=== PATIENT | male | born 1950 | race Caucasian/White ===

== ENCOUNTER 2018-12-02 04:07 | Emergency (ER) | payer BC, OTHER ==
[~2018-12-02] VITALS: Ht 177.8 cm; Wt 97.7 kg
[2018-12-02 05:48] LABS: BASO % 0.5 % (0.0-1.0); EOS # 0.1 10^3/uL (0.0-0.50); HEMATOCRIT 45.6 % (42.0-52.0); MEAN CORPUSCULAR HEMOGLOBIN 32.3 pg (27.0-33.0); MEAN CORPUSCULAR HGB CONC 35.1 g/dl (32.0-36.5); MEAN CORPUSCULAR VOLUME 91.9 fl (80.0-96.0); MONO # 0.5 10^3/uL (0.0-0.8); MONO % 8.5 % (0.0-5.0); NEUTROPHILS # 3.4 10^3/uL (1.8-7.7); NEUTROPHILS % 55.8 % (36.0-66.0); PLATELET COUNT, AUTOMATED 179 10^3/uL (150-450); RED BLOOD COUNT 4.96 10^6/uL (4.30-6.10); WHITE BLOOD COUNT 6.1 10^3/uL (4.0-10.0)
[2018-12-02 05:55] LABS: BLOOD UREA NITROGEN 16 MG/DL (7-18); CALCIUM LEVEL 8.9 MG/DL (8.8-10.2); CARBON DIOXIDE LEVEL 22 MEQ/L (21-32); CHLORIDE LEVEL 109 MEQ/L (98-107); CREATININE FOR GFR 0.97 MG/DL (0.70-1.30); GLOMERULAR FILTRATION RATE > 60.0 (>49); GLUCOSE, FASTING 101 MG/DL (70-100); SODIUM LEVEL 141 MEQ/L (136-145)
[2018-12-02 07:06] LABS: CK-MB VALUE MASS < 1.0 NG/ML (<3.6); CPK CREATINE PHOSPHOKINASE 57 U/L (39-308); MB/CK RELATIVE INDEX 1.75 (< OR =4); NT-PRO BNP 36 PG/ML (<125); TROPONIN I < 0.02 NG/ML (< 0.10)
[2018-12-02 08:45] VITALS: BP 114/68
--- NOTE | 2018-12-02 13:50 | REP ---
Chest x-ray: Two views. History: Shortness of breath . Comparison study: No comparison study . Findings: The lungs are well inflated and free of infiltrate. The pleural angles are sharp. The heart size is normal. Pulmonary vasculature is not increased. No significant bony abnormality is seen. EKG monitoring electrodes are seen. Impression: Negative chest x-ray. Electronically Signed by Osmar Watt MD 12/02/2018 01:41 P
--- NOTE | 2018-12-03 06:58 | ECGEPIP ---
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
== END 2018-12-02 08:55 | disposition home or self-care (01) ==
LOC: M ED 04:07
DX: R06.02 Shortness of breath (principal); R00.1 Bradycardia, unspecified; I48.91 Unspecified atrial fibrillation; K21.9 Gastro-esophageal reflux disease without esophagitis; F32.9 Major depressive disorder, single episode, unspecified

== ENCOUNTER → 2020-02-07 | Outpatient (REF) | payer OTHER | LOC: M LAB REF 08:42 | PROVIDERS: ATTEND Dermatology | DX: C44.509 Unspecified malignant neoplasm of skin of other part of trunk (principal) ==

== ENCOUNTER → 2020-03-19 | Outpatient (REF) | payer OTHER ==
[~2020-03-19] MED LIST: PROT20TA11 PO
== END ==
LOC: M LAB REF 10:41
PROVIDERS: ATTEND Dermatology
DX: C44.519 Basal cell carcinoma of skin of other part of trunk (principal)

== ENCOUNTER → 2020-05-14 | Outpatient (REF) | payer OTHER | LOC: M LAB REF 11:25 | PROVIDERS: ATTEND Dermatology | DX: L72.11 Pilar cyst (principal) ==

== ENCOUNTER → 2020-07-13 | Outpatient (CLI) | payer OTHER | LOC: M LABSMTC 08:30 | PROVIDERS: ATTEND Anesthesiology | DX: Z01.818 Encounter for other preprocedural examination (principal); Z20.828 Contact with and (suspected) exposure to other viral communicable diseases | CPT/HCPCS: C9803; U0003 ==

== ENCOUNTER 2020-07-18 07:36 | Day surgery (SDC) | payer BC, OTHER ==
[~2020-07-18] VITALS: Ht 180.3 cm; Wt 101.2 kg
[~2020-07-18 07:36] MED LIST changes: +LIDOCAINE 2% 100MG/5ML SDV (FOR ANES.) As Ordered ONE; +NS 1,000 ML IV ONE; +propofoL 200 MG/20 ML VIAL As Ordered ONE
[2020-07-18] MEDS ORDERED: propofoL 200 MG/20 ML VIAL As Ordered ONE (09:04)
--- NOTE | 2020-07-18 09:35 | ROOR ---
Patient Name: Sunday Pinon Procedure Date: 07/18/2020 8:47 AM Date of : 1950 Age: 69 Room: [facility] Gender: Male Note Status: Finalized Procedure: Colonoscopy Indications: Abnormal CT of the GI tract Providers: Derek Aponte MD Referring MD: FOREST ARRIOLA DO Requesting Provider: Medicines: Monitored Anesthesia Care Complications: No immediate complications. Procedure: Pre-Anesthesia Assessment: - Prior to the procedure, a History and Physical was performed, and patient medications and allergies were reviewed. The patient is competent. The risks and benefits of the procedure and the sedation options and risks were discussed with the patient. All questions were answered and informed consent was obtained. Patient identification and proposed procedure were verified by the physician, the nurse and the anesthesiologist in the procedure room. Mental Status Examination: alert and oriented. Airway Examination: normal oropharyngeal airway and neck mobility. Respiratory Examination: clear to auscultation. CV Examination: normal. Prophylactic Antibiotics: The patient does not require prophylactic antibiotics. Prior Anticoagulants: The patient has taken no previous anticoagulant or antiplatelet agents. ASA Grade Assessment: II - A patient with mild systemic disease. After reviewing the risks and benefits, the patient was deemed in satisfactory condition to undergo the procedure. The anesthesia plan was to use monitored anesthesia care (MAC). Immediately prior to administration of medications, the patient was re-assessed for adequacy to receive sedatives. The heart rate, respiratory rate, oxygen saturations, blood pressure, adequacy of pulmonary ventilation, and response to care were monitored throughout the procedure. The physical status of the patient was re-assessed after the procedure. The Colonoscope was introduced through the anus and advanced to the terminal ileum, with identification of the appendiceal orifice and IC valve. The colonoscopy was performed without difficulty. The patient tolerated the procedure well. The quality of the bowel preparation was good. The terminal ileum, ileocecal valve, appendiceal orifice, and rectum were photographed. Scope insertion time was 3 minutes. Scope withdrawal time was 9 minutes. The total duration of the procedure was 12 minutes. Findings: The perianal and digital rectal examinations were normal. The terminal ileum appeared normal. Five sessile polyps were found in the recto-sigmoid colon, descending colon, ascending colon and cecum. The polyps were 3 to 8 mm in size. These polyps were removed with a jumbo cold forceps. Resection and retrieval were complete. Verification of patient identification for the specimen was done by the physician and nurse using the patient's name, date and medical record number. Estimated blood loss was minimal. Multiple small and large-mouthed diverticula were found from sigmoid to descending colon. Non-bleeding external and internal hemorrhoids were found during retroflexion. The hemorrhoids were medium-sized. Normal mucosa was found in the entire colon. Biopsies for histology were taken with a cold forceps from the right colon, left colon and rectosigmoid colon for evaluation of microscopic colitis. Impression: - The examined portion of the ileum was normal. - Five 3 to 8 mm polyps at the recto-sigmoid colon, in the descending colon, in the ascending colon and in the cecum, removed with a jumbo cold forceps. Resected and retrieved. - Diverticulosis from sigmoid to descending colon. - Non-bleeding external and internal hemorrhoids. - Normal mucosa in the entire examined colon. Biopsied. Recommendation: - Patient has a contact number available for emergencies. The signs and symptoms of potential delayed complications were discussed with the patient. Return to normal activities tomorrow. Written discharge instructions were provided to the patient. - High fiber diet. - Continue present medications. - Await pathology results. - Use fiber, for example Citrucel, Fibercon, Konsyl or Metamucil. - Repeat colonoscopy in 3 - 5 years for surveillance of multiple polyps. - Telephone GI clinic for pathology results in 1 week. - Return to primary care physician. Derek Aponte MD Derek Aponte MD 07/18/2020 9:35:22 AM Electronically signed by Derek Aponte MD Number of Addenda: 0 Note Initiated On: 07/18/2020 8:47 AM Estimated Blood Loss: Estimated blood loss was minimal.
[2020-07-18 09:53] VITALS: BP 161/83
== END 2020-07-18 09:55 | disposition home or self-care (01) ==
LOC: M OPP 07:36
PROVIDERS: ATTEND Internal Medicine Gastroenterology
DX: K63.5 Polyp of colon (principal); K64.8 Other hemorrhoids; K57.30 Diverticulosis of large intestine without perforation or abscess without bleeding; R93.3 Abnormal findings on diagnostic imaging of other parts of digestive tract; M79.3 Panniculitis, unspecified; Z79.899 Other long term (current) drug therapy

== ENCOUNTER → 2020-12-28 | Outpatient (CLI) | payer BC, OTHER ==
[~2020-12-28] MED LIST changes: -LIDOCAINE 2% 100MG/5ML SDV (FOR ANES.) As Ordered ONE; -NS 1,000 ML IV ONE; +PANT20TA6; -propofoL 200 MG/20 ML VIAL As Ordered ONE
== END ==
LOC: M LABSMTC 08:27
PROVIDERS: ATTEND Anesthesiology
DX: Z20.828 Contact with and (suspected) exposure to other viral communicable diseases (principal); Z11.59 Encounter for screening for other viral diseases

== ENCOUNTER 2021-01-02 11:23 | Day surgery (SDC) | payer BC, OTHER ==
[~2021-01-02] VITALS: Ht 177.8 cm; Wt 98.9 kg
[2021-01-02] MEDS ORDERED: propofoL 200 MG/20 ML VIAL As Ordered ONE (12:53)
[2021-01-02] MEDS ORDERED: LIDOCAINE 2% 100MG/5ML SDV (FOR ANES.) As Ordered ONE (12:53)
[2021-01-02] MEDS ORDERED: fentaNYL 100 MCG/2 ML INJECTION (J3010) As Ordered ONE (12:54)
[2021-01-02 13:40] VITALS: BP 119/73
--- NOTE | 2021-01-02 13:52 | ROOR ---
Patient Name: Sunday Pinon Procedure Date: 01/02/2021 12:48 PM Date of : 1950 Age: 70 Room: [facility] Gender: Male Note Status: Finalized Procedure: Upper GI endoscopy Indications: Abnormal CT of the GI tract Providers: Derek Aponte MD Referring MD: FOREST ARRIOLA DO Requesting Provider: Medicines: Monitored Anesthesia Care Complications: No immediate complications. Procedure: Pre-Anesthesia Assessment: - Prior to the procedure, a History and Physical was performed, and patient medications and allergies were reviewed. The patient is competent. The risks and benefits of the procedure and the sedation options and risks were discussed with the patient. All questions were answered and informed consent was obtained. Patient identification and proposed procedure were verified by the physician, the nurse and the anesthesiologist in the procedure room. Mental Status Examination: alert and oriented. Airway Examination: normal oropharyngeal airway and neck mobility. Respiratory Examination: clear to auscultation. CV Examination: normal. Prophylactic Antibiotics: The patient does not require prophylactic antibiotics. Prior Anticoagulants: The patient has taken no previous anticoagulant or antiplatelet agents. ASA Grade Assessment: II - A patient with mild systemic disease. After reviewing the risks and benefits, the patient was deemed in satisfactory condition to undergo the procedure. The anesthesia plan was to use monitored anesthesia care (MAC). Immediately prior to administration of medications, the patient was re-assessed for adequacy to receive sedatives. The heart rate, respiratory rate, oxygen saturations, blood pressure, adequacy of pulmonary ventilation, and response to care were monitored throughout the procedure. The physical status of the patient was re-assessed after the procedure. The Colonoscope was introduced through the mouth, and advanced to the second part of duodenum. The upper GI endoscopy was accomplished without difficulty. The patient tolerated the procedure well. Findings: A medium-sized hiatal hernia was present. The Z-line was regular and was found 36 cm from the incisors. Scattered mild inflammation characterized by erythema and granularity was found in the gastric antrum. Biopsies were taken with a cold forceps for histology. Verification of patient identification for the specimen was done by the physician and nurse using the patient's name, date and medical record number. Estimated blood loss was minimal. The examined duodenum was normal. Normal mucosa was found in the jejunum. Biopsies were taken with a cold forceps for histology. Impression: - Medium-sized hiatal hernia. - Z-line regular, 36 cm from the incisors. - Gastritis. Biopsied. - Normal examined duodenum. - Normal mucosa was found in the jejunum. Biopsied. Recommendation: - Patient has a contact number available for emergencies. The signs and symptoms of potential delayed complications were discussed with the patient. Return to normal activities tomorrow. Written discharge instructions were provided to the patient. - High fiber diet. - Continue present medications. - Await pathology results. - Perform a small bowel follow through as previously scheduled. - Telephone GI clinic for pathology results in 2 weeks. - Return to GI clinic if persistent symptoms or new symptoms. - Return to primary care physician. Procedure Code(s): --- Professional --- 00589, Esophagogastroduodenoscopy, flexible, transoral; with biopsy, single or multiple Diagnosis Code(s): --- Professional --- K44.9, Diaphragmatic hernia without obstruction or gangrene K29.70, Gastritis, unspecified, without bleeding R93.3, Abnormal findings on diagnostic imaging of other parts of digestive tract CPT copyright 2019 [employer]. All rights reserved. The codes documented in this report are preliminary and upon centerpuncher review may be revised to meet current compliance requirements. Derek Aponte MD Derek Aponte MD 01/02/2021 1:51:40 PM Electronically signed by Derek Aponte MD Number of Addenda: 0 Note Initiated On: 01/02/2021 12:48 PM Estimated Blood Loss: Estimated blood loss was minimal.
== END 2021-01-02 13:48 | disposition home or self-care (01) ==
LOC: M OPP 11:23
PROVIDERS: ATTEND Internal Medicine Gastroenterology
DX: K44.9 Diaphragmatic hernia without obstruction or gangrene (principal); K29.70 Gastritis, unspecified, without bleeding; R93.3 Abnormal findings on diagnostic imaging of other parts of digestive tract
CPT/HCPCS: 43239; 88305; J3010

== ENCOUNTER → 2021-01-06 | Outpatient (CLI) | payer BC, OTHER ==
[~2021-01-06] MED LIST changes: +E-Z-PAQUE 96% w/w SUSP 176GM BTL As Ordered ONE
--- NOTE | 2021-01-06 14:31 | REP ---
INDICATION: ABNORMAL FINDING ON IMAGING ? MESENTERIC PANNICULITIS. COMPARISON: None. TECHNIQUE: The procedure was performed under the direct supervision of Dr. Watt. The images were reviewed with Dr. Watt. Liquid barium was administered and the barium column was followed through the small bowel to the level of the terminal ileum. 0.7 minutes of fluoro time was utilized for this procedure. FINDINGS: The assistant office manager film shows no organomegaly or pathological masses. The intestinal gas pattern is nonspecific. Small bowel transit time is approximately 30 minutes. During fluoroscopy gentle palpation shows all loops are freely movable and pliable. There are no fixed or angulated loops. The small bowel mucosal pattern is normal in course and caliber. There is no transition to suggest a partial small bowel obstruction. Spot filming of the terminal ileum shows it to be unremarkable. IMPRESSION: Small bowel follow-through examination within normal limits. <Electronically signed by Mc Orozco > 01/06/21 1419 <Electronically signed by Deric Watt > 01/06/21 0381
== END ==
LOC: M RAD 08:39
PROVIDERS: ATTEND Internal Medicine Gastroenterology
DX: R93.3 Abnormal findings on diagnostic imaging of other parts of digestive tract (principal)

== ENCOUNTER → 2021-03-06 | Outpatient (CLI) | payer BC, OTHER ==
[~2021-03-06] MED LIST changes: +ALBU8.5H; -E-Z-PAQUE 96% w/w SUSP 176GM BTL As Ordered ONE; +FLUTISP; +LEXA1TAB; +PROBCAP17 PO; +VITMTA PO
== END ==
LOC: M LABSMTC 11:40
PROVIDERS: ATTEND Anesthesiology
DX: Z01.812 Encounter for preprocedural laboratory examination (principal)

== ENCOUNTER 2021-03-11 10:55 | Day surgery (SDC) | payer BC, OTHER ==
[~2021-03-11] VITALS: Ht 177.8 cm; Wt 95.6 kg
[~2021-03-11 10:55] MED LIST changes: +LR 1,000 ML IV ONE; +ceFAZolin SOD 1 GM in D5W MINI-BAG PLUS 50 ML IV ONE
[2021-03-11] MEDS ORDERED: MIDAZOLAM INJ 2MG/2ML VIAL (J2250 PER 1MG) As Ordered ONE (12:06)
[2021-03-11] MEDS ORDERED: fentaNYL 100 MCG/2 ML INJECTION (J3010) As Ordered ONE (12:07)
[2021-03-11] MEDS ORDERED: SEVOFLURANE INHAL SOLN 250 ML BTL As Ordered ONE (12:26)
[2021-03-11] MEDS ORDERED: SCOPOLAMINE 1MG TRANSDERMAL PATCH TOP ONE (12:35)
[2021-03-11] MEDS ORDERED: BUPIVACAINE/EPIN 0.25% 30 ML VIAL As Ordered ONE (13:06)
[2021-03-11] MEDS ORDERED: ONDANSETRON 4MG/2ML VIAL As Ordered ONE (13:43)
[2021-03-11] MEDS ORDERED: KETOROLAC 60MG 2ML VIAL As Ordered ONE (13:43)
[2021-03-11] MEDS ORDERED: dexameTHASONE 4 MG/ML 1ML VIAL (J1100 PER 1MG) As Ordered ONE (13:43)
[2021-03-11] MEDS ORDERED: METOCLOPRAMIDE INJ 10MG/2ML VIAL (J2765 PER 1) As Ordered ONE (13:43)
[2021-03-11] MEDS ORDERED: ACETAMINOPHEN 1000MG 100ML IV BTL (OFIRMEV) (J0131 PER 10MG) As Ordered ONE (13:45)
[2021-03-11] MEDS ORDERED: propofoL 200 MG/20 ML VIAL As Ordered ONE ×2 (13:45→14:17)
[2021-03-11] MEDS ORDERED: SUGAMMADEX SODIUM 500 MG/5 ML VIAL (BRIDION) As Ordered ONE (13:51)
[2021-03-11] MEDS ORDERED: HYDROmorphone HCL 2 MG/ML 1ML VIAL (J1170) As Ordered ONE (13:53)
[2021-03-11] MEDS ORDERED: LIDOCAINE 2% 100MG/5ML SDV (FOR ANES.) As Ordered ONE (13:55)
[2021-03-11] MEDS ORDERED: ePHEDrine SULFATE 25 MG/5 ML(5MG/ML) SYRINGE As Ordered ONE (14:06)
[2021-03-11] MEDS ORDERED: oxyCODONE 5MG TAB PO PRN (14:40)
[2021-03-11] MEDS ORDERED: MEPERIDINE INJ 25 MG/ML VIAL (J2175) IV PRN (14:40)
[2021-03-11] MEDS ORDERED: fentaNYL 100 MCG/2 ML INJECTION (J3010) IV PRN (14:40)
[2021-03-11] MEDS ORDERED: ONDANSETRON 4MG/2ML VIAL IV PRN (14:40)
[2021-03-11] MEDS ORDERED: LR 1,000 ML IV SCH ×2 (14:40→14:45)
[2021-03-11] MEDS ORDERED: METOCLOPRAMIDE INJ 10MG/2ML VIAL (J2765 PER 1) IV PRN (14:40)
[2021-03-11 16:10] VITALS: BP 130/62
== END 2021-03-11 16:15 | disposition home or self-care (01) ==
LOC: M SDC 10:55
PROVIDERS: ATTEND Surgery
DX: K81.1 Chronic cholecystitis (principal); Z79.899 Other long term (current) drug therapy; K44.9 Diaphragmatic hernia without obstruction or gangrene; K21.9 Gastro-esophageal reflux disease without esophagitis; F32.9 Major depressive disorder, single episode, unspecified; F41.9 Anxiety disorder, unspecified
CPT/HCPCS: 47562; 88304; J0131; J0690; J1100; J1170; J1885; J2250; J2405; J2765; J3010

== ENCOUNTER → 2022-07-13 | Outpatient (REF) | payer BC, OTHER ==
[~2022-07-13] MED LIST changes: -LR 1,000 ML IV ONE; -ceFAZolin SOD 1 GM in D5W MINI-BAG PLUS 50 ML IV ONE
== END ==
LOC: M SFHCDERM 14:13
PROVIDERS: ATTEND Physician Assistant
DX: L57.0 Actinic keratosis (principal)

== ENCOUNTER 2022-12-20 20:26 | Emergency (ER) | payer BC, OTHER ==
[~2022-12-20] VITALS: Ht 177.8 cm; Wt 97.7 kg
[~2022-12-20 20:26] MED LIST changes: +FLUT50SP17; -FLUTISP
[2022-12-20] MEDS ORDERED: IBUP1TAB5 PO (20:38)
[2022-12-20] MEDS ORDERED: FLON1SPR NARES (20:38)
[2022-12-20] MEDS ORDERED: diphenhydrAMINE 50MG/ML VIAL IV STA (21:57)
[2022-12-20] MEDS ORDERED: METOCLOPRAMIDE INJ 10MG/2ML VIAL IV ONE (22:00)
[2022-12-20] MEDS ORDERED: NS 1,000 ML IV ONE (22:00)
[2022-12-20 22:21] LABS: HEMATOCRIT 46.7 % (42.0-52.0); HEMOGLOBIN 16.2 g/dl (13.5-17.5); MEAN CORPUSCULAR HEMOGLOBIN 32.1 pg (27.0-33.0); MEAN CORPUSCULAR HGB CONC 34.7 g/dl (32.0-36.5); MEAN CORPUSCULAR VOLUME 92.7 fl (80.0-96.0); PLATELET COUNT, AUTOMATED 221 10^3/uL (150-450); RED BLOOD COUNT 5.04 10^6/uL (4.30-6.10); WHITE BLOOD COUNT 7.8 10^3/uL (4.0-10.0)
[2022-12-20 22:35] LABS: BLOOD UREA NITROGEN 15 MG/DL (9-23); CALCIUM LEVEL 9.2 MG/DL (8.3-10.6); CARBON DIOXIDE LEVEL 24 MMOL/L (20-31); CHLORIDE LEVEL 108 MMOL/L (98-107); CREATININE FOR GFR 0.83 MG/DL (0.70-1.30); GLOMERULAR FILTRATION RATE > 60.0 (>42); GLUCOSE, FASTING 98 MG/DL (74-106); POTASSIUM SERUM 4.1 MMOL/L (3.5-5.1); SODIUM LEVEL 140 MMOL/L (136-145)
[2022-12-20 23:00] VITALS: BP 157/81
[2022-12-20] MEDS ORDERED: KETOROLAC 30 MG/ML 1ML VIAL IV ONE (23:00)
== END 2022-12-20 23:28 | disposition home or self-care (01) ==
LOC: M ED 20:26
DX: G43.909 Migraine, unspecified, not intractable, without status migrainosus (principal); I25.10 Atherosclerotic heart disease of native coronary artery without angina pectoris; K21.9 Gastro-esophageal reflux disease without esophagitis; I10 Essential (primary) hypertension
CPT/HCPCS: 70450; 80048; 85027; 96374; 96375; 99284; J1200; J1885; J2765

== ENCOUNTER 2023-01-08 05:42 | Emergency (ER) | payer BC, OTHER ==
[~2023-01-08] VITALS: Ht 180.3 cm; Wt 97.3 kg
[~2023-01-08 05:42] MED LIST changes: +FLON1SPR NARES; +IBUP1TAB5 PO
[2023-01-08] MEDS ORDERED: NS 1,000 ML IV ONE (07:15)
[2023-01-08] MEDS ORDERED: ACETAMINOPHEN 1000MG 100ML IV BAG IV ONE (07:15)
[2023-01-08 08:02] LABS: BASO % 0.3 % (0.0-1.0); EOS # 0.1 10^3/uL (0.0-0.5); EOS % 0.9 % (0.0-3.0); HEMATOCRIT 44.2 % (42.0-52.0); HEMOGLOBIN 15.5 g/dl (13.5-17.5); LYMPH # 1.5 10^3/uL (1.5-5.0); LYMPH % 23.4 % (24.0-44.0); MEAN CORPUSCULAR HGB CONC 35.1 g/dl (32.0-36.5); MONO # 0.5 10^3/uL (0.0-0.8); MONO % 7.8 % (2.0-8.0); NEUTROPHILS # 4.4 10^3/uL (1.5-8.5); NEUTROPHILS % 67.3 % (36.0-66.0); PLATELET COUNT, AUTOMATED 177 10^3/uL (150-450); WHITE BLOOD COUNT 6.5 10^3/uL (4.0-10.0)
[2023-01-08 08:30] LABS: INR 0.96
[2023-01-08 08:31] LABS: PARTIAL THROMBOPLASTIN TIME 28.7 SECONDS (24.8-34.2)
[2023-01-08 08:33] LABS: BLOOD UREA NITROGEN 16 MG/DL (9-23); CALCIUM LEVEL 8.8 MG/DL (8.3-10.6); CARBON DIOXIDE LEVEL 24 MMOL/L (20-31); CHLORIDE LEVEL 107 MMOL/L (98-107); CREATININE FOR GFR 0.81 MG/DL (0.70-1.30); GLOMERULAR FILTRATION RATE > 60.0 (>42); GLUCOSE, FASTING 103 MG/DL (74-106); MAGNESIUM LEVEL 1.9 MG/DL (1.8-2.4); POTASSIUM SERUM 4.3 MMOL/L (3.5-5.1); SODIUM LEVEL 140 MMOL/L (136-145)
[2023-01-08 08:46] LABS: ERYTHROCYTE SEDIMENTATION RATE 14 mm/hr (0-20)
[2023-01-08] MEDS ORDERED: KETOROLAC 30 MG/ML 1ML VIAL IV ONE (14:20)
[2023-01-08] MEDS ORDERED: AMIT10TA7 PO (14:24)
[2023-01-08] MEDS ORDERED: MEDR4PAK PO (14:26)
[2023-01-08] MEDS ORDERED: ANEC4CRE3 TOP (14:26)
[2023-01-08 15:14] VITALS: BP 142/75
== END 2023-01-08 15:16 | disposition home or self-care (01) ==
LOC: M ED 05:42
DX: R51.9 Headache, unspecified (principal); H93.13 Tinnitus, bilateral; K21.9 Gastro-esophageal reflux disease without esophagitis; Z79.810 Long term (current) use of selective estrogen receptor modulators (SERMs); Z79.899 Other long term (current) drug therapy
CPT/HCPCS: 70544; 70547; 70551; 72141; 80048; 83735; 85025; 85610; 85652; 85730; 96361; 96374; 96375; 99284; J0131; J1885

== ENCOUNTER 2023-10-19 06:59 | Day surgery (SDC) | payer MEDICARE, BC, OTHER ==
[~2023-10-19] VITALS: Ht 177.8 cm; Wt 99.5 kg
[~2023-10-19 06:59] MED LIST changes: +AMIT10TA7 PO; +ANEC4CRE3 TOP; +ASPI1TAB22 PO; +B-12100010 PO; +DIGETAB4 PO; -FLUT50SP17; +FLUTISP; +MEDR4PAK PO; -PANT20TA6; +PANT20TA6 PO; +RA N1TAB PO; +[UNRECOGNIZED DRUG - OTHER] PO
[2023-10-19] MEDS: NS 1,000 ML IV ONE (07:36)
[2023-10-19] MEDS ORDERED: propofoL 200 MG/20 ML VIAL As Ordered ONE (08:04)
[2023-10-19] MEDS ORDERED: LIDOCAINE 2% 100MG/5ML SDV (FOR ANES.) As Ordered ONE (08:04)
[2023-10-19 08:45] VITALS: TEMP 97
[2023-10-19 09:05] VITALS: BP 124/66; O2SAT 96
== END 2023-10-19 09:09 | disposition home or self-care (01) ==
LOC: M OPP 06:59
PROVIDERS: ATTEND Internal Medicine Gastroenterology
DX: Z12.11 Encounter for screening for malignant neoplasm of colon (principal); Z86.010 Personal history of colon polyps; D12.6 Benign neoplasm of colon, unspecified; K64.4 Residual hemorrhoidal skin tags; K64.8 Other hemorrhoids; K57.30 Diverticulosis of large intestine without perforation or abscess without bleeding; Z79.51 Long term (current) use of inhaled steroids; Z79.82 Long term (current) use of aspirin; Z79.899 Other long term (current) drug therapy

== ENCOUNTER → 2023-10-27 | Outpatient (CLI) | payer MEDICARE, BC, OTHER ==
[2023-10-27 18:03] LABS: HEMATOCRIT 46.6 % (42.0-52.0); HEMOGLOBIN 15.9 g/dl (13.5-17.5); MEAN CORPUSCULAR HEMOGLOBIN 32.1 pg (27.0-33.0); MEAN CORPUSCULAR HGB CONC 34.1 g/dl (32.0-36.5); MEAN CORPUSCULAR VOLUME 94.1 fl (80.0-96.0); PLATELET COUNT, AUTOMATED 224 10^3/uL (150-450); RED BLOOD COUNT 4.95 10^6/uL (4.30-6.10)
[2023-10-27 18:29] LABS: ALKALINE PHOSPHATASE 59 U/L (46-116); ALT/SGPT 23 U/L (7.0-40); AST/SGOT 21 U/L (<34); BILIRUBIN,TOTAL 1.5 MG/DL (0.3-1.2); BLOOD UREA NITROGEN 16 MG/DL (9-23); CALCIUM LEVEL 9.2 MG/DL (8.3-10.6); CARBON DIOXIDE LEVEL 25 MMOL/L (20-31); CHLORIDE LEVEL 110 MMOL/L (98-107); CREATININE FOR GFR 0.86 MG/DL (0.70-1.30); GLOMERULAR FILTRATION RATE > 60.0 (>42); GLUCOSE, FASTING 94 MG/DL (74-106); POTASSIUM SERUM 4.2 MMOL/L (3.5-5.1); SODIUM LEVEL 140 MMOL/L (136-145); TOTAL PROTEIN 7.3 G/DL (5.7-8.2)
[2023-10-28 09:39] LABS: WHITE BLOOD COUNT 7.4 10^3/uL (4.0-10.0)
== END ==
LOC: M WUC 14:52
PROVIDERS: ATTEND Physician Assistant
DX: R06.02 Shortness of breath (principal); R68.83 Chills (without fever); R07.9 Chest pain, unspecified

== ENCOUNTER 2024-04-20 11:48 | Day surgery (SDC) | payer MEDICARE, BC ==
[~2024-04-20] VITALS: Ht 177.8 cm; Wt 95.3 kg
[~2024-04-20 11:48] MED LIST changes: +NS 1,000 ML IV ONE; +SUCR1TAB56 PO
[2024-04-20] MEDS ORDERED: fentaNYL 100 MCG/2 ML INJECTION As Ordered ONE (13:45)
[2024-04-20] MEDS ORDERED: LIDOCAINE 2% 100MG/5ML SDV (FOR ANES.) As Ordered ONE (13:46)
[2024-04-20] MEDS ORDERED: GLYCOPYRROLATE INJ 0.2 MG/ML 2 ML VIAL As Ordered ONE (14:00)
[2024-04-20] MEDS ORDERED: propofoL 200 MG/20 ML VIAL As Ordered ONE (14:03)
[2024-04-20 14:32] VITALS: TEMP 97.4
[2024-04-20 14:49] VITALS: BP 135/74; O2SAT 97
== END 2024-04-20 14:56 | disposition home or self-care (01) ==
LOC: M OPP 11:48
PROVIDERS: ATTEND Internal Medicine Gastroenterology
DX: K44.9 Diaphragmatic hernia without obstruction or gangrene (principal); K21.9 Gastro-esophageal reflux disease without esophagitis; K22.2 Esophageal obstruction; I48.91 Unspecified atrial fibrillation; Z79.02 Long term (current) use of antithrombotics/antiplatelets; Z79.899 Other long term (current) drug therapy
CPT/HCPCS: 43239; 43249; 88305; J1596; J3010

== ENCOUNTER → 2024-06-05 | Outpatient (CLI) | payer MEDICARE, BC ==
[~2024-06-05] MED LIST changes: +E-Z-GAS II EFFERVESCENT PACKET (SODIUM BICARB./CITRIC ACID/SIMETHICONE) As Ordered ONE; +E-Z-HD 98% w/w 340GM SUSP BTL As Ordered ONE; +E-Z-PAQUE 96% w/w SUSP 176GM BTL As Ordered ONE; -NS 1,000 ML IV ONE
== END ==
LOC: M RAD 10:29
PROVIDERS: ATTEND Surgery
DX: K21.9 Gastro-esophageal reflux disease without esophagitis (principal); K44.9 Diaphragmatic hernia without obstruction or gangrene

== ENCOUNTER → 2024-07-17 | Outpatient (CLI) | payer MEDICARE, BC ==
[~2024-07-17] MED LIST changes: -E-Z-GAS II EFFERVESCENT PACKET (SODIUM BICARB./CITRIC ACID/SIMETHICONE) As Ordered ONE; -E-Z-HD 98% w/w 340GM SUSP BTL As Ordered ONE; -E-Z-PAQUE 96% w/w SUSP 176GM BTL As Ordered ONE
== END ==
LOC: M WUC 14:54
PROVIDERS: ATTEND Physician Assistant
DX: M79.671 Pain in right foot (principal)

== ENCOUNTER 2024-08-01 07:24 | Day surgery (SDC) | payer MEDICARE, BC ==
[~2024-08-01] VITALS: Ht 177.8 cm; Wt 96.1 kg
[~2024-08-01 07:24] MED LIST changes: +COLC0.6T47; +FAMO1TAB11 PO; +MELO15TA28 PO; +[UNRECOGNIZED DRUG - CODE] PO
[2024-08-01] MEDS ORDERED: propofoL 200 MG/20 ML VIAL As Ordered ONE (08:30)
[2024-08-01] MEDS ORDERED: LIDOCAINE 2% 100MG/5ML SDV (FOR ANES.) As Ordered ONE (08:30)
[2024-08-01] MEDS ORDERED: fentaNYL 100 MCG/2 ML INJECTION As Ordered ONE (08:31)
[2024-08-01 08:55] VITALS: TEMP 96.8
[2024-08-01 09:10] VITALS: BP 126/64; O2SAT 96
== END 2024-08-01 09:20 | disposition home or self-care (01) ==
LOC: M OPP 07:24
PROVIDERS: ATTEND Surgery
DX: K44.9 Diaphragmatic hernia without obstruction or gangrene (principal); K21.9 Gastro-esophageal reflux disease without esophagitis; M19.90 Unspecified osteoarthritis, unspecified site; F41.9 Anxiety disorder, unspecified; Z79.51 Long term (current) use of inhaled steroids; Z79.82 Long term (current) use of aspirin; Z79.899 Other long term (current) drug therapy
CPT/HCPCS: 43239; 88305; 91035; J3010

== ENCOUNTER → 2024-08-07 | Outpatient (CLI) | payer MEDICARE, BC ==
[2024-08-07 19:24] LABS: HEMOGLOBIN 15.8 g/dl (13.5-17.5); MEAN CORPUSCULAR HEMOGLOBIN 31.6 pg (27.0-33.0); MEAN CORPUSCULAR HGB CONC 32.9 g/dl (32.0-36.5); PLATELET COUNT, AUTOMATED 233 10^3/uL (150-450)
[2024-08-07 19:42] LABS: URIC ACID 7.4 MG/DL (3.7-9.2)
[2024-08-07 19:44] LABS: PROSTATIC SPECIFIC AG MONITOR 1.33 NG/ML (< 4.00)
[2024-08-07 19:46] LABS: ALKALINE PHOSPHATASE 69 U/L (40-129); ALT/SGPT 21 U/L (7.0-40); AST/SGOT 17 U/L (<34); BILIRUBIN,TOTAL 0.8 MG/DL (0.3-1.2); BLOOD UREA NITROGEN 13 MG/DL (9-23); CALCIUM LEVEL 9.8 MG/DL (8.3-10.6); CARBON DIOXIDE LEVEL 25 MMOL/L (20-31); CHLORIDE LEVEL 110 MMOL/L (98-107); CHOLESTEROL LEVEL 221 MG/DL (<200); CHOLESTEROL RISK RATIO 4.96 (<5); CREATININE FOR GFR 0.88 MG/DL (0.70-1.30); GLOMERULAR FILTRATION RATE > 60.0 (>42); GLUCOSE, FASTING 99 MG/DL (74-106); HDL CHOLESTEROL 44.5 MG/DL (>40); LDL CHOLESTEROL 137.3 MG/DL (<100); NON-HDL-C 176.5 MG/DL; POTASSIUM SERUM 4.3 MMOL/L (3.5-5.1); SODIUM LEVEL 141 MMOL/L (136-145); TOTAL PROTEIN 7.7 G/DL (5.7-8.2); TRIGLYCERIDES LEVEL 196 MG/DL (<150)
[2024-08-07 19:49] LABS: THYROID STIMULATING HORMONE 2.964 uIU/ML (0.55-4.78)
[2024-08-08 07:05] LABS: WHITE BLOOD COUNT 6.4 10^3/uL (4.0-10.0)
== END ==
LOC: M WUC 09:53
PROVIDERS: ATTEND Physician Assistant
DX: R53.83 Other fatigue (principal); M79.671 Pain in right foot; E78.5 Hyperlipidemia, unspecified; Z12.5 Encounter for screening for malignant neoplasm of prostate; M19.071 Primary osteoarthritis, right ankle and foot; Z79.899 Other long term (current) drug therapy

== ENCOUNTER → 2024-08-17 | Outpatient (CLI) | payer MEDICARE, BC | LOC: M RAD 10:48 | PROVIDERS: ATTEND Surgery | DX: K44.9 Diaphragmatic hernia without obstruction or gangrene (principal) ==

== ENCOUNTER → 2025-03-15 | Outpatient (CLI) | payer MEDICARE, BC ==
[~2025-03-15] MED LIST changes: +AMIT10TA11 PO; -AMIT10TA7 PO
[2025-03-15 14:39] LABS: APPEARANCE, URINE CLEAR (CLEAR); BACTERIA, URINE AUTO NEGATIVE (NEGATIVE); BILIRUBIN, URINE AUTO NEGATIVE (NEGATIVE); BLOOD, URINE BLOOD NEGATIVE (NEGATIVE); GLUCOSE, URINE (UA) AUTO NEGATIVE (NEGATIVE); KETONE, URINE AUTO NEGATIVE (NEGATIVE); LEUKOCYTE ESTERASE, URINE AUTO NEGATIVE (NEGATIVE); NITRITE, URINE AUTO NEGATIVE (NEGATIVE); PROTEIN, URINE AUTO NEGATIVE (NEGATIVE); RBC, URINE AUTO 0 /HPF (0-3); SPECIFIC GRAVITY URINE AUTO 1.009 (1.002-1.035); SQUAMOUS EPITHELIAL CELL UR AU 0 /HPF (0-6); UROBILINOGEN, URINE AUTO 0.2 mg/dL (0.0-2.0); WBC, URINE AUTO 0 /HPF (0-3)
[2025-03-15 14:41] LABS: BASO # 0.1 10^3/uL (0.0-0.2); BASO % 0.9 % (0.0-1.0); EOS # 0.2 10^3/uL (0.0-0.5); EOS % 2.3 % (0.0-3.0); LYMPH # 2.3 10^3/uL (1.5-5.0); LYMPH % 34.0 % (24.0-44.0); MONO # 0.8 10^3/uL (0.0-0.8); MONO % 12.0 % (2.0-8.0); NEUTROPHILS # 3.4 10^3/uL (1.5-8.5); NEUTROPHILS % 50.6 % (36.0-66.0); PLATELET COUNT, AUTOMATED 229 10^3/uL (150-450)
[2025-03-15 15:07] LABS: ALT/SGPT 28 U/L (7.0-40); AST/SGOT 31 U/L (<34); CALCIUM LEVEL 9.4 MG/DL (8.3-10.6); CARBON DIOXIDE LEVEL 26 MMOL/L (20-31); CHLORIDE LEVEL 103 MMOL/L (98-107); CREATININE FOR GFR 0.90 MG/DL (0.70-1.30); GLOMERULAR FILTRATION RATE > 90.0 (>42); POTASSIUM SERUM 4.3 MMOL/L (3.5-5.1); SODIUM LEVEL 142 MMOL/L (136-145)
== END ==
LOC: M WUC 10:21
PROVIDERS: ATTEND Family Medicine
DX: Z01.818 Encounter for other preprocedural examination (principal); E79.0 Hyperuricemia without signs of inflammatory arthritis and tophaceous disease; K21.9 Gastro-esophageal reflux disease without esophagitis

== ENCOUNTER → 2025-07-03 | Outpatient (CLI) | payer MEDICARE, BC ==
[~2025-07-03] MED LIST changes: -COLC0.6T47; +COLC0.6T53
[2025-07-03 17:30] LABS: ALT/SGPT 28.0 U/L (7.0-40); AST/SGOT 29.0 U/L (<34); CALCIUM LEVEL 9.0 MG/DL (8.3-10.6); CARBON DIOXIDE LEVEL 24.0 MMOL/L (20-31); CHLORIDE LEVEL 106.0 MMOL/L (98-107); CHOLESTEROL LEVEL 226.0 MG/DL (<200); CHOLESTEROL RISK RATIO 4.12 (<5); CREATININE FOR GFR 0.94 MG/DL (0.70-1.30); GLOMERULAR FILTRATION RATE 86.1 (>42); LDL CHOLESTEROL 141.0 MG/DL (<100); NON-HDL-C 171.2 MG/DL; POTASSIUM SERUM 4.1 MMOL/L (3.5-5.1); SODIUM LEVEL 142.0 MMOL/L (136-145); TRIGLYCERIDES LEVEL 151.0 MG/DL (<150)
[2025-07-03 17:38] LABS: BASO # 0.0 10^3/uL (0.0-0.2); BASO % 0.6 % (0.0-1.0); EOS # 0.1 10^3/uL (0.0-0.5); EOS % 1.5 % (0.0-3.0); LYMPH # 2.3 10^3/uL (1.5-5.0); LYMPH % 32.4 % (24.0-44.0); MONO # 0.6 10^3/uL (0.0-0.8); MONO % 9.0 % (2.0-8.0); NEUTROPHILS # 4.0 10^3/uL (1.5-8.5); NEUTROPHILS % 56.2 % (36.0-66.0); PLATELET COUNT, AUTOMATED 267 10^3/uL (150-450)
[2025-07-03 18:09] LABS: APPEARANCE, URINE CLEAR (CLEAR); BACTERIA, URINE AUTO NEGATIVE (NEGATIVE); BILIRUBIN, URINE AUTO NEGATIVE (NEGATIVE); BLOOD, URINE BLOOD NEGATIVE (NEGATIVE); GLUCOSE, URINE (UA) AUTO NEGATIVE (NEGATIVE); KETONE, URINE AUTO NEGATIVE (NEGATIVE); LEUKOCYTE ESTERASE, URINE AUTO NEGATIVE (NEGATIVE); MUCUS, URINE SMALL (NEGATIVE); NITRITE, URINE AUTO NEGATIVE (NEGATIVE); PROTEIN, URINE AUTO NEGATIVE (NEGATIVE); RBC, URINE AUTO 1 /HPF (0-3); SPECIFIC GRAVITY URINE AUTO 1.018 (1.002-1.035); SQUAMOUS EPITHELIAL CELL UR AU 0 /HPF (0-6); UROBILINOGEN, URINE AUTO 0.2 mg/dL (0.0-2.0); WBC, URINE AUTO 1 /HPF (0-3)
[2025-07-03 18:58] LABS: ESTIMATED AVERAGE GLUCOSE 114.0 MG/DL (60-110)
== END ==
LOC: M WUC 14:58
PROVIDERS: ATTEND Family Medicine
DX: R73.09 Other abnormal glucose (principal); R00.2 Palpitations; R53.83 Other fatigue; E78.00 Pure hypercholesterolemia, unspecified